=== PATIENT | male | born 1980 | race Caucasian/White ===

== ENCOUNTER 2019-03-27 08:00 | Emergency (ER) | payer MEDICAID ==
[~2019-03-27] VITALS: Ht 175.3 cm; Wt 95.0 kg
[2019-03-27 08:04] VITALS: BP 112/56
--- NOTE | 2019-03-27 08:30 | NUR ---
in bed resting alert and orintated waiting for md for med refil
[2019-03-27] MEDS ORDERED: LISI-600 PO (08:34)
[2019-03-27] MEDS ORDERED: PROP20TA6 PO (08:34)
[2019-03-27] MEDS ORDERED: ketorolac tromethamine 15mg/ml inj. IM ONE (08:35)
== END 2019-03-27 08:48 | disposition home or self-care (01) ==
LOC: ER 08:01
DX: I10 Essential (primary) hypertension (principal); M54.5 Low back pain; Z76.0 Encounter for issue of repeat prescription; Z79.899 Other long term (current) drug therapy
CPT/HCPCS: 96372; 99283; J1885

== ENCOUNTER 2021-05-02 03:05 | Emergency (ER) | payer MEDICAID ==
[~2021-05-02] VITALS: Ht 177.8 cm; Wt 88.6 kg
[~2021-05-02 03:05] MED LIST: PROP20TA6 PO
[2021-05-02] MEDS ORDERED: normal saline 1000ml 1,000 ML IV ONE (03:20)
[2021-05-02] MEDS ORDERED: ibuprofen tablet 400 MG TABLET PO ONE (03:45)
[2021-05-02] MEDS ORDERED: acetaminophen 325mg tablet PO ONE (03:45)
[2021-05-02 04:00] LABS: BASOPHILS % (AUTO) 0.4 % (0-1); EOSINOPHILS # (AUTO) 0.3 X10'3 (0-0.9); EOSINOPHILS % (AUTO) 3.1 % (0-6); HEMOGLOBIN 14.5 g/dl (14.0-17.9); LYMPHOCYTES # (AUTO) 2.1 X10'3 (1.1-4.8); LYMPHOCYTES % (AUTO) 25.1 % (21-51); MEAN CORPUSCULAR HEMOGLOBIN 31.4 PG (27.0-31.0); MEAN CORPUSCULAR HGB CONC 34.5 g/dL (33.0-36.5); MEAN CORPUSCULAR VOLUME 91.2 FL (78-98); MEAN PLATELET VOLUME 9.2 FL (7.4-10.4); MONOCYTES # (AUTO) 0.9 X10'3 (0-0.9); MONOCYTES % (AUTO) 11.1 % (2-12); NEUTROPHILS % (AUTO) 60.3 % (42-75); PLATELET COUNT 207 X10'3 (140-440); RED CELL DISTRIBUTION WIDTH 12.5 % (11.5-14.5); WHITE BLOOD COUNT 8.3 X10'3 (4.5-11.0)
[2021-05-02 04:12] LABS: ALBUMIN 3.6 G/DL (3.4-5.0); ANION GAP 11 (8-16); BLOOD UREA NITROGEN 23 MG/DL (7-18); BUN/CREATININE RATIO 20.5 (5.4-32.0); CALCIUM 8.1 MG/DL (8.5-10.1); CHLORIDE 109 MMOL/L (99-107); CREATININE 1.12 MG/DL (0.60-1.10); GLUCOSE 100 MG/DL (70-104); POTASSIUM 3.7 MMOL/L (3.5-5.1); SODIUM 143 MMOL/L (135-145); eGFR 73 ML/MIN
[2021-05-02 04:17] VITALS: BP 134/94
== END 2021-05-02 05:01 | disposition home or self-care (01) ==
LOC: ER 03:05
DX: M79.671 Pain in right foot (principal); M79.672 Pain in left foot; E86.0 Dehydration; Z79.899 Other long term (current) drug therapy
CPT/HCPCS: 36415; 80048; 85025; 96360; 99283; J7030